=== PATIENT | female | born 1970 | race Two or more races ===

== ENCOUNTER 2017-10-24 14:49 | Emergency (ER) | payer OTHER ==
[~2017-10-24] VITALS: Ht 154.9 cm; Wt 78.9 kg
[2017-10-24 14:57] VITALS: BP 124/80
--- NOTE | 2017-10-24 15:13 | Emergency Room Report ---
History of Present Illness General Chief Complaint: Laceration Source: Patient Present Illness HPI 47-year-old female patient presents ER complaining of laceration on index finger right hand. Reports she was at work using a knife and cut her finger. Reports she does not know tetanus vaccination status. Reports mild bleeding at site of injury on palmar side of index finger. Reports right-hand dominant. Denies loss of nail or nailbed injury. Denies other acute symptoms. denies fever, chest pain, shortness of breath. Allergies: Coded Allergies: No Known Allergies (Unverified , 10/24/17) Patient History Past Medical History: see triage record Reviewed Nursing Documentation: PMH: Agreed; PSxH: Agreed Nursing Documentation-PMH Past Medical History: No Stated History Review of Systems All Other Systems: negative except mentioned in HPI Physical Exam Vital Signs Date Time Temp Pulse Resp B/P (MAP) Pulse Ox O2 Delivery O2 Flow Rate FiO2 10/24/17 14:57 98.0 77 18 124/80 99 Room Air 98.1 Sp02 EP Interpretation: reviewed, normal General Appearance: well appearing, no apparent distress, alert, GCS 15, non- toxic Head: normocephalic, atraumatic Eyes: bilateral eye normal inspection, bilateral eye PERRL ENT: hearing grossly normal, normal pharynx, no angioedema, normal voice, uvula midline, moist mucus membranes Neck: full range of motion Respiratory: lungs clear, normal breath sounds, no rhonchi, no respiratory distress, no accessory muscle use, no wheezing, speaking full sentences Cardiovascular #1: regular rate, rhythm, no edema Cardiovascular #2: 2+ radial (R), 2+ radial (L) Musculoskeletal: back normal, digits/nails normal, gait/station normal, normal range of motion, non-tender, other - . Flexion and extension of DIP PIP and MCP joint of the affected finger, no erythema or edema, no swelling, no tenderness to palpation of her flexor tendon, finger not held in extension or flexion Psychiatric: mood/affect normal Skin: laceration - also tender superficial laceration on the ulnar aspect of right index finger of distal phalanx extending laterally towards nail bed on ulnar side of nail, does not go into the nailbed, no subungual hematoma, no elevated injury Procedures Laceration/Wound Repair Laceration/Wound Repair : Consent: Written Wound Location: other - right index finger, distal phalanx, palmar side Wound's Depth, Shape: superficial Wound Length (cm): 1 Wound Explored: contaminated Irrigated w/ Saline (ccs): 10 Betadine Prep?: Yes Wound Debrided: extensive Wound Repaired With: Dermabond Layer Closure?: No Sterile Dressing Applied?: No Splint Applied?: No Sling Applied?: No Patient Tolerated: Well Complications: None Medical Decision Making PA Attestation Dr. Cotter is my supervising Physician whom patient management has been discussed with. Diagnostic Impression: Primary Impression: Laceration ER Course Pt presents to ED c/o laceration on left index finger. DDX considered but are not limited to laceration, abrasion, contusion, cellulitis. VITAL SIGNS are WNL, patient is afebrile ED INTERVENTIONS: Wound was cleaned and irrigated using normal saline. Wound is superficial and not over the joint, do not believe patient require sutures at this time, will repair with Dermabond. No fusiform swelling, no tenderness to palpation over the flexor tendon, low suspicion for flexor tenosynovitis. Low suspicion for tendon rupture, no exposed tendons, full range of motion flexion and extension, sensation intact to light touch, Low suspicion for fracture, does not require imaging at this time. Keep wound clean and dry. TDap and Tylenol provided in ER. Wound check in 3-5 days. Completed Workmen's Compensation paperwork. Decreased use of right hand to prevent tearing of wound repair. DISCHARGE: Rx provided for Keflex to prevent infection. Rx provided for Tylenol At this time pt is stable for d/c to home. Patient resting comfortably, in no acute distress, nontoxic appearing, talking without difficulty. Will provide with patient care instructions and any necessary prescriptions. Patient to take medication as instructed. Care plan and follow-up instructions provided. Work note provided to patient. Patient questions asked and answered. Patient instructed to follow-up with primary care provider in 3-5 days for wound check. ER precautions given. Patient instructed to return to ER immediately for any new or worsening of symptoms. - Please note that this Emergency Department Report was dictated using [employer] risk assessor technology software, occasionally this can lead to erroneous entry secondary to interpretation by the dictation equipment. Last Vital Signs Date Time Temp Pulse Resp B/P (MAP) Pulse Ox O2 Delivery O2 Flow Rate FiO2 10/24/17 14:57 98.0 77 18 124/80 99 Room Air 98.0 Disposition: HOME, SELF-CARE Condition: Stable Scripts Cephalexin* (KEFLEX*) 500 Mg Capsule 500 MG ORAL EVERY 12 HOURS, #14 CAP 0 Refills Prov: Nik Deleon 10/24/17 Acetaminophen* (TYLENOL EXTRA STRENGTH*) 500 Mg Tablet 500 MG ORAL Q8H PRN for Prn Headache/Temp > 101, #30 TAB 0 Refills Prov: Nik Deleon 10/24/17 Patient Instructions: Nonsutured Laceration Care Additional Instructions: Patient instructed to follow-up with primary care provider in 3-5days for wound check. Take medications as directed. Keep wound clean and dry. Patient questions asked and answered. ER precautions given, patient instructed to return to ER immediately for any new or worsening of symptoms. Nik Deleon Oct 24, 2017 15:13
[2017-10-24] MEDS ORDERED: Acetaminophen 500mg (ES) tab ORAL ONE (15:15)
[2017-10-24] MEDS ORDERED: Tetanus/Diptheria/Pertussis Vaccine 0.5ml Syr IM ONE (15:15)
[2017-10-24] MEDS ORDERED: CEPHALEXIN500 MG ORAL (15:52)
[2017-10-24] MEDS ORDERED: TYLENOL EXTRA500 MG ORAL (15:52)
[2017-10-24 16:02] VITALS: BP 121/80
== END 2017-10-24 16:02 | disposition home or self-care (01) ==
LOC: EMR 15:26
DX: S61.210A Laceration without foreign body of right index finger without damage to nail, initial encounter (principal); Z23 Encounter for immunization; W26.0XXA Contact with knife, initial encounter; Y99.0 Civilian activity done for income or pay
CPT/HCPCS: 90471; 90715; 99284